=== PATIENT | female | born 1975 | race Two or more races ===

== ENCOUNTER 2022-06-19 11:02 | Observation (INO) | payer MEDICAID ==
[~2022-06-19] VITALS: Ht 160 cm; Wt 90.7 kg
[2022-06-19] MEDS ORDERED: GLYB1.257 PO (13:39)
[2022-06-19] MEDS ORDERED: METF-370 PO (13:39)
== END 2022-06-19 14:03 | disposition home or self-care (01) ==
LOC: LDRP 11:02 → UNDOADMOB 11:02 → LDRP 11:14 → UNDODISOB 14:03
PROVIDERS: ADMIT Obstetrics & Gynecology; ATTEND Obstetrics & Gynecology
DX: O24.419 Gestational diabetes mellitus in pregnancy, unspecified control (principal); O09.523 Supervision of elderly multigravida, third trimester; Z3A.34 34 weeks gestation of pregnancy
CPT/HCPCS: 59025; 76818; 81002; 82948; 82962; 94760; G0378

== ENCOUNTER 2022-06-23 08:00 | Observation (INO) | payer MEDICAID ==
[~2022-06-23 08:00] MED LIST: GLYB1.257 PO; METF-370 PO
[2022-06-23] MEDS ORDERED: PREN-96 PO (09:17)
== END 2022-06-23 09:41 | disposition home or self-care (01) ==
LOC: LDRP 08:00 → UNDOADMOB 08:00 → LDRP 08:48 → UNDODISOB 09:41
PROVIDERS: ADMIT Obstetrics & Gynecology; ATTEND Obstetrics & Gynecology
DX: O24.419 Gestational diabetes mellitus in pregnancy, unspecified control (principal); O09.523 Supervision of elderly multigravida, third trimester; Z3A.34 34 weeks gestation of pregnancy
CPT/HCPCS: 59025; 76818; 81002; 82948; 82962; 94760; G0378

== ENCOUNTER 2022-06-26 08:25 | Observation (INO) | payer MEDICAID ==
[~2022-06-26 08:25] MED LIST changes: +PREN-96 PO
== END 2022-06-26 09:31 | disposition home or self-care (01) ==
LOC: UNDOADMOB 08:25 → LDRP 08:25 → UNDODISOB 09:31
PROVIDERS: ADMIT Obstetrics & Gynecology; ATTEND Obstetrics & Gynecology
DX: O24.419 Gestational diabetes mellitus in pregnancy, unspecified control (principal); O09.523 Supervision of elderly multigravida, third trimester; Z3A.35 35 weeks gestation of pregnancy
CPT/HCPCS: 59025; 76818; 81002; 82948; 82962; 94760; G0378

== ENCOUNTER 2022-06-30 08:47 | Observation (INO) | payer MEDICAID | END 2022-06-30 10:18 | disposition home or self-care (01) | LOC: LDRP 08:47 → UNDOADMOB 09:22 → UNDODISOB 10:18 | PROVIDERS: ADMIT Obstetrics & Gynecology; ATTEND Obstetrics & Gynecology | DX: O24.419 Gestational diabetes mellitus in pregnancy, unspecified control (principal); O09.523 Supervision of elderly multigravida, third trimester; Z3A.35 35 weeks gestation of pregnancy | CPT/HCPCS: 59025; 76818; 81002; 82948; 82962; G0378 ==

== ENCOUNTER 2022-07-03 08:40 | Observation (INO) | payer MEDICAID ==
[~2022-07-03] VITALS: Ht 160 cm; Wt 90.3 kg
== END 2022-07-03 12:50 | disposition home or self-care (01) ==
LOC: LDRP 08:40 → UNDOADMOB 09:39 → UNDODISOB 12:50
PROVIDERS: ADMIT Obstetrics & Gynecology; ATTEND Obstetrics & Gynecology
DX: O24.419 Gestational diabetes mellitus in pregnancy, unspecified control (principal); O09.523 Supervision of elderly multigravida, third trimester; Z3A.36 36 weeks gestation of pregnancy
CPT/HCPCS: 59025; 76818; 82948; 82962; 94760; G0378

== ENCOUNTER 2022-07-07 10:05 | Observation (INO) | payer MEDICAID | END 2022-07-07 11:28 | disposition home or self-care (01) | LOC: LDRP 10:05 → UNDOADMOB 10:05 → LDRP 10:12 | PROVIDERS: ADMIT Obstetrics & Gynecology; ATTEND Obstetrics & Gynecology | DX: O24.419 Gestational diabetes mellitus in pregnancy, unspecified control (principal); O09.523 Supervision of elderly multigravida, third trimester; Z3A.36 36 weeks gestation of pregnancy | CPT/HCPCS: 59025; 76818; 81002; 82948; 94760; G0378 ==

== ENCOUNTER 2022-07-10 08:42 | Observation (INO) | payer MEDICAID | END 2022-07-13 16:25 | disposition home or self-care (01) | LOC: UNDOADMOB 07-13 14:52 → LDRP 07-13 14:52 | PROVIDERS: ADMIT Obstetrics & Gynecology; ATTEND Obstetrics & Gynecology | DX: O24.419 Gestational diabetes mellitus in pregnancy, unspecified control (principal); O09.523 Supervision of elderly multigravida, third trimester; Z3A.37 37 weeks gestation of pregnancy; Z87.891 Personal history of nicotine dependence | CPT/HCPCS: 59025; 76818; 81002; 82948; 82962; G0378 ==

== ENCOUNTER 2022-07-21 10:11 | Observation (INO) | payer MEDICAID | END 2022-07-21 11:42 | disposition home or self-care (01) | LOC: UNDOADMOB 10:11 → LDRP 10:11 → UNDODISOB 11:42 | PROVIDERS: ADMIT Obstetrics & Gynecology; ATTEND Obstetrics & Gynecology | DX: O24.419 Gestational diabetes mellitus in pregnancy, unspecified control (principal); Z3A.38 38 weeks gestation of pregnancy | CPT/HCPCS: 59025; 76818; 81002; 82948; 82962; 94760; G0378 ==

== ENCOUNTER 2022-07-24 14:20 | Inpatient (IN) | payer MEDICAID ==
[~2022-07-24] VITALS: Ht 165.1 cm; Wt 92.1 kg
[2022-07-24] MEDS ORDERED: PHISODERM TOP SOLN 240ML BTL TOP PRN (14:30)
[2022-07-24] MEDS ORDERED: LIDOCAINE 2%HCL (LOCAL ANESTH.) INJ 20ML MDV IJ PRN (14:30)
[2022-07-24] MEDS ORDERED: BUTORPHANOL TARTRATE 2 MG/1 ML VIAL IV PRN ×2 (14:30)
[2022-07-24] MEDS ORDERED: PROMETHAZINE HCL 25 MG/ML 1ML IV PRN (14:30)
[2022-07-24] MEDS ORDERED: WITCH HAZEL-GLYCERIN PAD TOP PRN (14:30)
[2022-07-24] MEDS ORDERED: DERMOPLAST 60ML BOTTLE TOP PRN (14:30)
[2022-07-24 15:21] LABS: Basophils # (auto) 0 10 ^3/uL (0-0.2); Basophils % (auto) 0.1 % (0.0-2.0); Eosinophils # (auto) 0.1 10 ^3/uL (0-0.8); Eosinophils % (auto) 0.8 % (0.0-7.0); Hematocrit 35.6 % (36.0-46.0); Hemoglobin 11.8 g/dL (12.2-16.2); Lymphocytes % (auto) 27.4 % (10.0-50.0); Mean Corpuscular Hemoglobin 29.4 pg (28.0-32.0); Mean Corpuscular Hgb Conc. 33.1 g/dL (32.0-36.0); Mean Corpuscular Volume 88.9 fL (80.0-100.0); Monocytes # (auto) 0.7 10 ^3/uL (0-1.3); Neutrophils # (auto) 4.5 10 ^3/uL (1.6-8.6); Neutrophils % (auto) 61.7 % (37.0-80.0); Nucleated Red Blood Cells % 0.2 %; Red Cell Distribution Width 13.5 % (11.8-14.3); White Blood Cell 7.3 10^3/uL (4.4-10.8)
[2022-07-24 15:35] LABS: INR 0.91 (0.9-1.15)
[2022-07-24 15:37] LABS: Albumin 2.6 g/dL (3.4-5.0); Potassium 3.8 mmol/L (3.5-5.1)
[2022-07-24 15:39] LABS: BUN/Creatinine Ratio 18.4
[2022-07-24 15:55] LABS: Bilirubin, Total 0.6 mg/dL (0.2-1.0); Total Protein 7.5 g/dL (6.4-8.2)
[2022-07-24 15:58] LABS: Urine Bacteria FEW /hpf (None Seen); Urine Blood Negative /uL (Negative); Urine Specific Gravity 1.005 (1.001-1.035); Urine WBC 1 /hpf (0 - 5)
[2022-07-24] MEDS ORDERED: miSOPROStol 50 MCG per PRE-CUT 1/2 TAB PO PRN (16:00)
[2022-07-24] MEDS ORDERED: fentaNYL CITRATE 100 MCG/2 ML VL IV PRN (16:00)
[2022-07-24] MEDS ORDERED: D5W/LACTATED RINGERS 1,000 ML IV PRN (16:00)
[2022-07-24 16:12] LABS: Alcohol, Urine < 3.0 mg/dL (0-10); Amphetamine Screen, Urine NEGATIVE (NEGATIVE); Barbiturate Scree,Urine NEGATIVE (NEGATIVE); Benzodiazephine Screen, Urine NEGATIVE (NEGATIVE); Cannabinoid Screen, Urine NEGATIVE (NEGATIVE); Cocaine Screen, Urine NEGATIVE (NEGATIVE); Opiate Scree,Urine NEGATIVE (NEGATIVE); Phencyclidine Screen, Urine NEGATIVE (NEGATIVE)
[2022-07-24] MEDS ORDERED: ACCU-CHEK COMFORT CURVE STRIP VI SCH (18:00)
[2022-07-24] MEDS ORDERED: LACT. RINGERS/OXYTOCIN 20UNITS 500 ML IV ONE ×2 (19:30→20:00)
[2022-07-24] MEDS ORDERED: METHYLERGONOVINE MALEATE 0.2 MG/ML AMP IM PRN (19:30)
[2022-07-24] MEDS ORDERED: diphenhdrAMINE HCL 50 MG/1 ML VL IV PRN (19:30)
[2022-07-24] MEDS ORDERED: DIPHENOXYLATE W/ATROPINE 2.5 MG TAB PO PRN (19:30)
[2022-07-24] MEDS ORDERED: ONDANSETRON HCL 4 MG/2 ML VIAL IV PRN (19:30)
[2022-07-24] MEDS ORDERED: ACETAMINOPHEN 325 MG TAB PO PRN (19:30)
[2022-07-24] MEDS ORDERED: TRANEXAMIC ACID 1,000 MG in SODIUM CHL 0.9% 100 ML IV PRN (19:30)
[2022-07-24] MEDS ORDERED: TERBUTALINE SULFATE 1 MG/ML 1ML VIAL SC PRN (19:30)
[2022-07-24] MEDS ORDERED: miSOPROStol 100 mcg TAB SL PRN (19:30)
[2022-07-24] MEDS: LACTATED RINGER'S 1,000 ML IV SCH ×2 (19:36→22:20)
[2022-07-25] MEDS ORDERED: LACT. RINGERS/OXYTOCIN 20UNITS 1,000 ML IV SCH (05:15)
[2022-07-25 07:06] LABS: RPR Non Reactive (Non Reactive)
[2022-07-25] MEDS ORDERED: fentaNYL CITRATE 100 MCG/2 ML VL IV ONE (07:45)
[2022-07-25] MEDS ORDERED: LIDOCAINE HCL 2 %PF INJ 10ML AMP IJ ONE (07:45)
[2022-07-25] MEDS ORDERED: NALOXONE HCL 0.4 MG/ML VIAL IV ONE (07:45)
[2022-07-25] MEDS ORDERED: ROPIVACAINE HCL 200 ML EPI SCH (07:45)
[2022-07-25] MEDS ORDERED: ePHEDrine SULFATE 50 MG/ML AMP IV ONE (07:45)
[2022-07-25] MEDS ORDERED: LACTATED RINGER'S 1,000 ML IV ONE (07:45)
[2022-07-25] MEDS ORDERED: Lidocaine W-Epinephrine 1.5%-1:200,000 INJ 10ml Vial ONE (08:12)
[2022-07-25] MEDS ORDERED: FAMOTIDINE (10MG/ML) 2ML VL IV ONE (08:43)
[2022-07-25] MEDS ORDERED: FAMOTIDINE (10MG/ML) 2ML VL IV PRN (09:00)
[2022-07-25] MEDS: LACTATED RINGER'S 1,000 ML IV SCH ×2 (09:37→17:40)
[2022-07-25] MEDS ORDERED: CARBOPROST TROMETHAMINE 250 MCG/1ML VIAL IM PRN (18:30)
[2022-07-25] MEDS: CARBOPROST TROMETHAMINE 250 MCG/1ML VIAL IM PRN ×3 (19:51→20:31)
[2022-07-25] MEDS ORDERED: ceFAZolin 2 GM/D5W100ml 100 ML IV ONE (20:00)
[2022-07-25] MEDS ORDERED: LACT. RINGERS/OXYTOCIN 20UNITS 500 ML IV ONE ×2 (20:00→20:30)
[2022-07-25] MEDS ORDERED: ONDANSETRON ODT 4 MG TAB PO PRN (20:00)
[2022-07-25] MEDS ORDERED: ceFAZolin 1GM VL ONE (20:45)
[2022-07-25] MEDS: ACETAMINOPHEN 325 MG TAB PO PRN (20:58)
[2022-07-25] MEDS: IBUPROFEN 800 MG TAB PO PRN (21:45)
[2022-07-25] MEDS ORDERED: DOCUSATE SOD 100 MG CAP PO SCH (22:00)
[2022-07-25 23:13] VITALS: BP 117/58
[2022-07-26 03:00] VITALS: BP 119/64
[2022-07-26] MEDS ORDERED: ceFAZolin 1GM/50ML 50 ML IV SCH (04:00)
[2022-07-26] MEDS: ceFAZolin 1GM/50ML 50 ML IV SCH ×2 (04:29→11:31)
[2022-07-26 06:52] VITALS: BP 95/55
[2022-07-26] MEDS: IBUPROFEN 800 MG TAB PO PRN ×2 (08:15→15:02)
[2022-07-26 11:21] VITALS: BP 99/51
[2022-07-26 14:56] VITALS: BP 112/70
[2022-07-26 19:35] VITALS: BP 89/50
[2022-07-26] MEDS: ACETAMINOPHEN 325 MG TAB PO PRN (20:29)
[2022-07-26 23:00] VITALS: BP 88/48
[2022-07-27 03:00] VITALS: BP 103/57
[2022-07-27] MEDS: IBUPROFEN 800 MG TAB PO PRN (03:08)
[2022-07-27 07:00] VITALS: BP 89/53
== END 2022-07-27 10:36 | disposition home or self-care (01) | DRG 560 ==
LOC: LDRP 14:20
PROVIDERS: ADMIT Obstetrics & Gynecology; ATTEND Obstetrics & Gynecology
PROC: 10E0XZZ Delivery of Products of Conception, External Approach (ICD-10-PCS; principal; 2022-07-25)
PROC: 3E0R3BZ Introduction of Anesthetic Agent into Spinal Canal, Percutaneous Approach (ICD-10-PCS; 2022-07-25)
PROC: 00HU33Z Insertion of Infusion Device into Spinal Canal, Percutaneous Approach (ICD-10-PCS; 2022-07-25)
DX: O24.429 Gestational diabetes mellitus in childbirth, unspecified control (principal); Z37.0 Single live birth; Z20.822 Contact with and (suspected) exposure to COVID-19; Z3A.39 39 weeks gestation of pregnancy
CPT/HCPCS: 36415; 59025; 59409; 62282; 80053; 80307; 81001; 81002; 82948; 82962; 85025; 85610; 85730; 86592; 86850; 86900; 86901; 87426; 94760; 94762; 96360; 96361; 96365; 96366; 96372; 96374; G0378; J0690; J2405; J2590; J3490; J7060